=== PATIENT | female | born 1985 | race Caucasian/White ===

== ENCOUNTER 2016-08-27 08:43 | Emergency (ER) | payer OTHER ==
--- NOTE | 2016-08-27 09:46 | UCPHY ---
H & P Time Seen by Provider: 08/27/16 09:21 Patient Type: Established HPI/ROS: HPI Sinus pain, nasal congestion. 30-year-old female by private vehicle. She complains of frontal, maxillary sinus pain with associated frontal headache for the last 24 hours. She has had nasal congestion, cough secondary to postnasal drip which she describes as a nonproductive cough, clear rhinorrhea for the last week. frontal sinus pain and pressure started a couple of days ago. No fever. Mild sore throat. ROS: Constitutional: As above, no chills. No weakness. Eyes: No discharge. No changes in vision. ENT: As above. Respiratory: As above. No shortness of breath. Cardiac: No chest pain, no palpitations. Gastrointestinal: No abdominal pain, no vomiting, no diarrhea. Genitourinary: No hematuria. No dysuria or increased frequency with urination. Musculoskeletal: No back pain. No neck pain. No myalgias or arthralgias. Skin: No rashes. Neurological: As above. No focal weakness or altered sensation. Past medical history: As above. Social history: Here by herself. Nonsmoker. Physical Exam: General Appearance: Alert, no distress. This patient is responding to questions appropriately and in full sentences. This patient appears well- hydrated and well-nourished. Eyes: Pupils equal and round no pallor or injection. No lid edema, erythema or injection. ENT, Mouth: Mucous membranes are moist. The pharyngeal tissues are unremarkable. No edema or swelling. No asymmetry suggestive of abscess. No erythema or exudates. Nasal congestion. Discomfort with palpation over the maxillary sinuses. Respiratory: There are no retractions, lungs are clear to auscultation with good air movement bilaterally. Cardiovascular: Regular rate and rhythm. No murmur. Neurological: Motor sensory function is grossly intact. Cranial nerves are normal. Gait is normal. Skin: Warm and dry, no rashes. Musculoskeletal: Neck is supple and nontender. Extremities are symmetrical. All joints range without pain or impingement. Psychiatric: No agitation. No depression. Database: Rapid influenza-negative. EKG: Imaging: Procedures: Emergency department course: She reports she has been taking ibuprofen. Rapid flu swab obtained. This was negative. Etiology of sinusitis is likely viral. I discussed antibiotic administration and explained that I did not feel it was indicated at this time. She is asking for antibiotics. I explained I would write her a prescription for Augmentin which she can fill in 1-2 days if her symptoms are not resolving. Plan will be to start her on nasal steroids and high-dose ibuprofen immediately. She is in agreement with this plan. She feels comfortable going home and I feel she is safe for discharge. Follow-up and return to Urgent Care precautions reviewed. All of her questions were answered. She was discharged in good condition. Differential Diagnosis: The differential diagnosis on this patient includes but is not limited to upper respiratory infection, influenza, viral sinusitis. Serious bacterial infection unlikely. This represents a partial list of diagnoses considered. These considerations are based on history, physical exam, past history, reassessment and diagnostic testing. Smoking Status: Never smoked Constitutional: Initial Vital Signs Temperature (C) 36.8 C 08/27/16 09:03 Heart Rate 72 08/27/16 09:03 Respiratory Rate 16 08/27/16 09:03 Blood Pressure 122/81 H 08/27/16 09:03 O2 Sat (%) 97 08/27/16 09:03 O2 Delivery Mode Room Air Allergies/Adverse Reactions: No Known Allergies Allergy (Verified 08/27/16 09:06) Home Medications: Medication Instructions Recorded Amoxicillin/Clavulanate Pot 875 mg PO BID 7 Days 08/27/16 [Augmentin 875 mg tab] Fluticasone Nasal [Flonase Nasal 2 sprays NASAL DAILY #1 mdi 08/27/16 [place] (RX)] No Home Medications 08/27/16 Medical Decision Making - Data Points Laboratory Results: 08/27/16 09:40 Influenza Typ A,B (DFA) Pending Departure - Departure Disposition: Home, Routine, Self-Care Clinical Impression: Upper respiratory infection, Sinusitis, acute Condition: Good Instructions: Sinusitis (ED), Upper Respiratory Infection (ED) Additional Instructions: Read and follow provided instructions. Follow-up with your primary care physician in 1-2 days for re-evaluation. Take medication as prescribed. Ibuprofen dosin mg every 6 hours with meals for the next 3 days only. Fill prescription for Augmentin antibiotic if symptoms are not improving in 2 days. Return to the emergency department for worsening symptoms, worsening headache, high fever or other serious concerns. Referrals: NONE *PRIMARY CARE P,. [Primary Care Provider] - As per Instructions Prescriptions: Amoxicillin/Clavulanate Pot [Augmentin 875 mg tab] 875 mg PO BID 7 Days Fluticasone Nasal [Flonase Nasal [place] (RX)] 2 sprays NASAL DAILY #1 mdi - PQRS PQRS Measurement: Not applicable.
[2016-08-27 09:57] VITALS: BP 118/71; PULSE 82; RESP 18; TEMP 98.6; O2SAT 96
== END 2016-08-27 09:57 | disposition home or self-care (01) ==
LOC: CED 08:43
DX: J01.90 Acute sinusitis, unspecified (principal)
CPT/HCPCS: 87400-PO; 99214-PO; G0463-PO